=== PATIENT | male | born 1960 | race Caucasian/White ===

== ENCOUNTER 2020-09-06 07:31 | Day surgery (SDC) | payer MEDICAID, OTHER ==
[2020-09-04 12:01] LABS: COVID AG,FIA SOURCE NASOPHARYNGEAL
[~2020-09-06] VITALS: Ht 185.4 cm; Wt 110.0 kg
[~2020-09-06 07:31] MED LIST: KETOROLAC TROMETHAMINE 0.5% 5 ML OPHTHALMIC SOLUTION ONE; MOXIFLOXACIN HCL 0.5% 3 ML OPHTHALMIC SOLUTION ONE; PHENYLEPHRINE HCL 2.5% 2 ML OPHTHALMIC SOLUTION ONE; RINGERS SOLUTION,LACTATED 500 ML IV ONE; TROPICAMIDE 1% 2 ML OPHTHALMIC SOLUTION ONE
[2020-09-06] MEDS ORDERED: LIDOCAINE/PF 1% 2 ML VIAL IM ONE (07:32)
[2020-09-06] MEDS ORDERED: EPINEPHrine 1:1,000 [1 MG/ML] AMP IM ONE (07:32)
[2020-09-06] MEDS ORDERED: CHONDR SULF A SOD/HYALURONATE 1.05 ML KIT IO ONE (07:32)
[2020-09-06] MEDS ORDERED: POVIDONE-IODINE 10% 15 ML SOLUTION UD TP ONE (07:32)
[2020-09-06] MEDS ORDERED: FentaNYL CITRATE PF 100 MCG/2 ML VIAL IVP ONE (07:32)
[2020-09-06] MEDS ORDERED: MIDAZOLAM HCL 2 MG/2 ML VIAL IVP ONE (07:32)
[2020-09-06] MEDS ORDERED: TETRACAINE HCL/PF 0.5% 4 ML OPHTHALMIC SOLUTION OU ONE (07:32)
[2020-09-06] MEDS: MOXIFLOXACIN HCL 0.5% 3 ML OPHTHALMIC SOLUTION OS SCH ×3 (09:41→09:59)
[2020-09-06] MEDS: PHENYLEPHRINE HCL 2.5% 2 ML OPHTHALMIC SOLUTION OS SCH ×3 (09:41→09:59)
[2020-09-06] MEDS: KETOROLAC TROMETHAMINE 0.5% 5 ML OPHTHALMIC SOLUTION OS SCH ×3 (09:41→09:59)
[2020-09-06] MEDS: TROPICAMIDE 1% 2 ML OPHTHALMIC SOLUTION OS SCH ×3 (09:41→09:59)
[2020-09-06] MEDS ORDERED: RINGERS SOLUTION,LACTATED 500 ML IV ONE (10:30)
[2020-09-18] MEDS ORDERED: ATOR10TA69 PO (13:58)
[2020-09-18] MEDS ORDERED: ASPI-1522 PO (13:58)
== END 2020-09-06 12:00 | disposition home or self-care (01) ==
LOC: SURGERY 07:31
PROVIDERS: ATTEND Ophthalmology
DX: H25.12 Age-related nuclear cataract, left eye (principal)
CPT/HCPCS: 66984; 87426; 93005; A9575; C9803; J0171; J2250; J3010; J3490; J7120; V2632

== ENCOUNTER 2020-09-20 07:52 | Day surgery (SDC) | payer MEDICAID ==
[2020-09-18 11:33] LABS: COVID AG,FIA SOURCE NASOPHARYNGEAL
[~2020-09-20] VITALS: Ht 185.4 cm; Wt 110.0 kg
[~2020-09-20 07:52] MED LIST changes: +ASPI-1522 PO; +ATOR10TA69 PO
[2020-09-20] MEDS ORDERED: FentaNYL CITRATE PF 100 MCG/2 ML VIAL IVP ONE (07:53)
[2020-09-20] MEDS ORDERED: MIDAZOLAM HCL 2 MG/2 ML VIAL IVP ONE (07:53)
[2020-09-20] MEDS ORDERED: RINGERS SOLUTION,LACTATED 500 ML IV ONE (08:00)
[2020-09-20] MEDS: TROPICAMIDE 1% 2 ML OPHTHALMIC SOLUTION OD SCH ×3 (09:31→09:44)
[2020-09-20] MEDS: MOXIFLOXACIN HCL 0.5% 3 ML OPHTHALMIC SOLUTION OD SCH ×3 (09:31→09:44)
[2020-09-20] MEDS: KETOROLAC TROMETHAMINE 0.5% 5 ML OPHTHALMIC SOLUTION OD SCH ×3 (09:31→09:44)
[2020-09-20] MEDS: PHENYLEPHRINE HCL 2.5% 2 ML OPHTHALMIC SOLUTION OD SCH ×3 (09:32→09:43)
[2020-09-20] MEDS ORDERED: 0.9% SODIUM CHLORIDE 10 ML SYRINGE IVP PRN (09:45)
[2020-09-20] MEDS ORDERED: TETRACAINE HCL/PF 0.5% 4 ML OPHTHALMIC SOLUTION ONE (18:17)
[2020-09-20] MEDS ORDERED: BALANCED SALT 15 ML OPHTHALMIC IRRIG.SOLN ONE (18:17)
[2020-09-20] MEDS ORDERED: EPINEPHrine 1:1,000 [1 MG/ML] AMP ONE (18:17)
[2020-09-20] MEDS ORDERED: LIDOCAINE/PF 1% 2 ML VIAL ONE (18:17)
[2020-09-20] MEDS ORDERED: HYALURONATE SOD/CHONDROITIN SOD 0.5 ML VIAL IO ONE (18:17)
[2020-09-20] MEDS ORDERED: POVIDONE-IODINE 10% 15 ML SOLUTION UD ONE (18:17)
[2020-09-20] MEDS ORDERED: CHONDR SULF A SOD/HYALURONATE 1.05 ML KIT IO ONE (18:17)
== END 2020-09-20 11:00 | disposition home or self-care (01) ==
LOC: SURGERY 07:52
PROVIDERS: ATTEND Ophthalmology
DX: H25.11 Age-related nuclear cataract, right eye (principal); E78.00 Pure hypercholesterolemia, unspecified; E66.3 Overweight; Z79.899 Other long term (current) drug therapy
CPT/HCPCS: 66984; 87426; A9575; C9803; J0171; J2250; J3010; J3490; J7120; V2632